=== PATIENT | male | born 2000 ===

== ENCOUNTER 2020-06-14 14:50 | Outpatient (CLI) | payer OTHER ==
--- NOTE | 2020-06-14 15:56 | XRay Report ---
. LEFT KNEE 4 VIEWS INDICATION: LEFT KNEE PAIN/ FATTY LIVER. COMPARISON: None. IMPRESSION: No acute osseous or soft tissue abnormality. No significant DJD. Signer Name: Mack Sagastume Jr, MD Signed: 06/14/2020 3:51 PM Workstation Name: [id number]
== END 2020-06-14 14:51 | disposition home or self-care (01) ==
LOC: SPVIMAG 14:50
PROVIDERS: ATTEND Family Medicine
DX: M25.562 Pain in left knee (principal); K76.0 Fatty (change of) liver, not elsewhere classified